=== PATIENT | female | born 1940 | race Caucasian/White ===

== ENCOUNTER 2019-01-02 13:47 | Emergency (ER) | payer OTHER, MEDICARE ==
[~2019-01-02] VITALS: Ht 154.9 cm; Wt 63.5 kg
[2019-01-02 13:47] VITALS: BP_SYST 141
[~2019-01-02 13:47] MED LIST: ASPI-1155 PO; DONE10TA4 PO; ESTR0.5T PO; FLUT16SP24 NS; HYDR-500 PO; LISI-600 PO; NEBI10TA2 PO; OMEP40CA33 PO; SIMV40TA5 PO; SUCR1TAB PO
--- NOTE | 2019-01-02 13:48 | NUR ---
BROUGHT BACK TO BED #7 AND TRIAGED. REPORT GIVEN TO YODIT
--- NOTE | 2019-01-02 13:50 | NUR ---
To gown for exam. Side rails up. CAREGIVER AND SON AT BEDSIDE.
--- NOTE | 2019-01-02 14:00 | NUR ---
PATIENT SITTING UP ON BED. AWAKE, ALERT, AND ORIENTED x1 TO SELF. PT RE-ORIENTED TO PLACED AND TIME. PER SON, PT'S ORIENTATION IS NORMAL FOR THE PATIENT. PATIENT WITH A HISTORY OF ALZHEIMER'S. RESPIRATIONS EVEN AND UNLABORED. NO SOB. PATIENT BROUGHT IN BY SON AND CAREGIVER FOR MECHANICAL FALL, APPROXIMATELY 1 HOUR AGO. PER SON, PT TRIPPED AND FELL ON A CARPET. DENIES OF ANY HEAD TRAUMA OR KO. PATIENT IS A POOR HISTORIAN. NO OBJECTIVE S/SX OF PAIN OBSERVED WHILE AT REST. PT NOTED WITH FACIAL GRIMACING WHEN BILATERAL KNEES AND LEFT ANKLE ARE PALPATED. NO BRUISING, REDNESS, OR SWELLING NOTED. SKIN INTACT. REST AND RELAXATION ENCOURAGED. AWAITING MD ORDERS.
--- NOTE | 2019-01-02 14:10 | NUR ---
ER Dr. STARR at bedside examining patient.
--- NOTE | 2019-01-02 14:20 | NUR ---
RADIOLOGY AT BEDSIDE FOR X-RAYS.
--- NOTE | 2019-01-02 14:40 | NUR ---
RAO WRAP applied to LEFT ANKLE BY BRANDON THURSTON. TOLERATING WELL. PEDAL pulse noted. Capillary refill <2 seconds. Patient has ability to move non-splinted digits. Has sensation present to affected site. Skin color within normal limits. Applied for pain management control.
[2019-01-02 14:45] VITALS: BP_SYST 125
--- NOTE | 2019-01-02 14:45 | NUR ---
PATIENT'S SON given written and verbal discharge instructions and verbalizes understanding. ER MD discussed with PATIENT'S SON the results and treatment provided. Patient in stable condition. ID arm band removed. Rx of MOTRIN given. Patient's son educated on pain management and to follow up with PMD. Pain Scale 0/10. NO OBJECTIVE S/SX OF PAIN OBSERVED. Opportunity for questions provided and answered. Medication side effect fact sheet provided. PATIENT IN GOOD CONDITION AND IN NO ACUTE DISTRESS. PT'S SON AND RN ASSISTED PATIENT ONTO WHEELCHAIR. PATIENT DISCHARGED HOME.
== END 2019-01-02 14:45 | disposition home or self-care (01) ==
LOC: SED 13:47
DX: S93.402A Sprain of unspecified ligament of left ankle, initial encounter (principal); F03.90 Unspecified dementia, unspecified severity, without behavioral disturbance, psychotic disturbance, mood disturbance, and anxiety; I10 Essential (primary) hypertension; Z79.82 Long term (current) use of aspirin; Z79.899 Other long term (current) drug therapy; W01.0XXA Fall on same level from slipping, tripping and stumbling without subsequent striking against object, initial encounter; Y93.89 Activity, other specified; Y92.89 Other specified places as the place of occurrence of the external cause; Y99.8 Other external cause status
CPT/HCPCS: 99283